=== PATIENT | female | born 2000 | race Caucasian/White ===

== ENCOUNTER 2022-05-10 09:40 | Outpatient (CLI) | payer OTHER, SELFPAY ==
[2022-05-10 15:34] LABS: Chlamydia DNA Amplified* NOT DETECTED (No Detected); GC DNA Amplified* NOT DETECTED (No Detected)
== END 2022-05-10 09:41 | disposition home or self-care (01) ==
LOC: FRMREF 09:40
PROVIDERS: Visit Provider Registered Nurse
DX: Z11.3 Encounter for screening for infections with a predominantly sexual mode of transmission (principal)
CPT/HCPCS: 87491; 87591

== ENCOUNTER 2023-12-25 10:19 | Outpatient (CLI) | payer OTHER, SELFPAY | END 2023-12-25 10:20 | disposition home or self-care (01) | LOC: NFLDREF 01-01 14:38 | PROVIDERS: PCP Physician Assistant Medical; Visit Provider Physician Assistant Medical | DX: Z13.228 Encounter for screening for other metabolic disorders (principal); Z13.220 Encounter for screening for lipoid disorders; Z13.29 Encounter for screening for other suspected endocrine disorder; Z11.3 Encounter for screening for infections with a predominantly sexual mode of transmission | CPT/HCPCS: 80053; 80061; 84443; 86592; 86706; 86803; 87340; 87491; 87591 ==

== ENCOUNTER 2024-02-13 14:04 | Outpatient (CLI) | payer OTHER, SELFPAY | END 2024-02-13 14:05 | disposition home or self-care (01) | LOC: NFLDREF 02-19 11:57 | PROVIDERS: Visit Provider Family Medicine | DX: N39.0 Urinary tract infection, site not specified (principal) | CPT/HCPCS: 87086 ==

== ENCOUNTER 2025-05-19 06:56 | Outpatient (CLI) | payer OTHER, SELFPAY ==
--- NOTE | 2025-05-19 07:15 | CRLHL7_ITS ---
For Patients: As a result of the Century Cures Act, medical imaging exams and procedure reports are released immediately into your electronic medical record. You may view this report before your referring provider. If you have questions, please contact your health care provider. INDICATION: Dating and viability TECHNIQUE: Ultrasound OB pelvis transvaginal. Real-time coy-scale imaging of the pelvis was performed. COMPARISON: None FINDINGS: Clinical Age: 9 weeks 2 days (LEONCIO 12/20/2025 based on LMP) Sonographic imaging demonstrates a single living intrauterine gestation. The embryo demonstrates a regular cardiac rate measuring 171 beats per minute. The embryo`s crown rump length measurement of 3.0 cm corresponds to a gestational age of 9 weeks 6 days which is within standard deviation of the clinical age. There is a normal appearing yolk sac. There are no gross abnormalities noted within the embryo at this early state of development. The placenta has not yet developed. Hypoechoic perigestational collection measuring 0.4 x 0.6 x 1.8 centimeters. The ovaries are of normal size. There are no suspicious fluid collections noted in the cul-de-sac. IMPRESSION: 1. Single live intrauterine gestation with a clinical age of 9 weeks 2 days. 2. Small perigestational hemorrhage measuring 0.4 x 0.6 x 1.8 centimeters. Perigestational hemorrhages of this size are often an incidental finding. Dictated by Jaylan Sterling MD @ 05/19/2025 8:32:52 AM (Electronically Signed)
== END 2025-05-19 06:57 | disposition home or self-care (01) ==
PROVIDERS: Visit Provider Physician Assistant
DX: Z34.91 Encounter for supervision of normal pregnancy, unspecified, first trimester (principal); Z3A.09 9 weeks gestation of pregnancy
CPT/HCPCS: 76817

== ENCOUNTER 2025-05-19 08:18 | Outpatient (CLI) | payer OTHER, SELFPAY ==
[2025-05-19 13:16] LABS: Chlamydia DNA Amplified* NOT DETECTED (No Detected); GC DNA Amplified* NOT DETECTED (No Detected)
== END 2025-05-19 08:19 | disposition home or self-care (01) ==
PROVIDERS: Visit Provider Physician Assistant
DX: Z34.91 Encounter for supervision of normal pregnancy, unspecified, first trimester (principal); Z3A.09 9 weeks gestation of pregnancy
CPT/HCPCS: 83020; 83021; 85660; 86592; 86703; 86704; 86706; 86762; 86787; 86803; 86850; 86900; 86901; 87086; 87340; 87491; 87591